=== PATIENT | male | born 1980 | race Caucasian/White ===

== ENCOUNTER → 2024-07-31 14:57 | Outpatient (CLI) | payer OTHER, SELFPAY ==
--- NOTE | 2024-07-31 15:01 | DI.ECHO.S_ITS ---
[facility] : : [id number] : [place] : : [id number] : : Phone: [phone] Echocardiogram Report + + :Name: NOLA GREWAL Study Date: 07/31/2024 Height: 72 in : :Hospital ReadingLocation: Weight: 287 lb : : Gender: Male BSA: 2.5 m2 : :: 1980 Age: 43 yrs BP: 147/97 mmHg: :Reason For Study: CHEST PAIN : :Ordering Physician: IAIN, : :ALIYAH Performed By: Colton Reyna : :Referring: ALIYAH TIMMONS : + + Interpretation Summary The left ventricle is normal in size. The left ventricular ejection fraction is normal. The ejection fraction is estimated to be 60-65%. The right ventricle is at the upper limits of normal in size. The right ventricular systolic function is normal. No significant valvular pathology seen. The inferior vena cava was not visualized. Procedure: A two-dimensional transthoracic echocardiogram with color flow and Doppler was performed. The study quality was technically good. There is no prior echocardiogram noted for this patient. The patient was in normal sinus rhythm during the exam. Left Ventricle: The left ventricle is normal in size. There is normal left ventricular wall thickness. There is no thrombus. The ejection fraction is estimated to be 60-65%. The left ventricular ejection fraction is normal. There are no focal wall motion abnormalities. Diastolic parameters suggest probable normal left ventricular diastolic function and normal filling pressures. Right Ventricle: The right ventricle is at the upper limits of normal in size. The right ventricular systolic function is normal. Atria: The left atrial size is normal. Right atrial size is normal. There is no Doppler evidence for an interatrial shunt. Mitral Valve: The mitral valve leaflets appear normal. There is no evidence of stenosis, fluttering, or prolapse. There is no mitral regurgitation noted. Aortic Valve: The aortic valve is trileaflet. The aortic valve opens well. There is no aortic valve stenosis. No aortic regurgitation is present. Tricuspid Valve: The tricuspid valve leaflets are thin and pliable. No tricuspid regurgitation. Pulmonary artery pressures cannot be estimated because of the lack of a measurable TR jet velocity. Pulmonic Valve: The pulmonic valve leaflets are thin and pliable; valve motion is normal. There is trace pulmonic regurgitation. Great Vessels: The aortic root is normal size. The dimensions of the ascending aorta are normal. The pulmonary artery is normal size. The inferior vena cava was not visualized. Pericardium/ Pleura There is no pericardial effusion. MMode/2D Measurements & Calculations LVIDd: 5.8 cm LVOT diam: 2.1 cm LVIDs: 4.0 cm Ao root diam: 3.3 cm FS: 31.1 % asc Aorta Diam: 3.3 cm EPSS: 0.87 cm Ao Arch Diam (Prox Trans): 2.4 cm IVSd: 0.85 cm LVPWd: 1.0 cm LV ferris. diameter/BSA (cm/m^2): 2.3 LV sys. diameter/BSA (cm/m^2): 1.6 LA A2 area: 15.9 cm2 RA long axis: 4.2 cm LA A4 area: 14.2 cm2 RA area: 13.6 cm2 LA length (vol): 4.7 cm RA vol: 37.8 ml LA vol: 40.6 ml RA : 15.2 ml/m2 LA vol index: 16.3 ml/m2 RVD1 (basal): 4.1 cm RVD2 (mid): 3.1 cm TAPSE: 2.3 cm Doppler Measurements & Calculations Ao V2 max: 118.4 cm/sec LVOT Max Dwight: 96.0 cm/sec Ao V2 mean: 91.3 cm/sec LV V1 max P.7 mmHg Ao max P.6 mmHg LV V1 VTI: 16.6 cm Ao mean P.5 mmHg BHANU(I,D): 2.7 cm2 Ao V2 VTI: 21.9 cm BHANU(V,D): 2.9 cm2 sev ratio: 0.76 BHANU indexed to BSA (cm^2/m^2): 1.1 MV E max dwight: 53.0 cm/sec TR max dwight: 230.2 cm/sec MV A max dwight: 46.2 cm/sec TR max P.2 mmHg MV E/A: 1.1 PA V2 max: 83.5 cm/sec Med Peak E' Dwight: 8.9 cm/sec PA V2 mean: 62.8 cm/sec E/E' med: 5.9 PA mean P.7 mmHg Lat Peak E' Dwight: 9.7 cm/sec PA pr(Accel): 25.9 mmHg E/E' lat: 5.5 E/e' average: 5.7 MV dec time: 0.18 sec SV(LVOT): 60.2 ml Reading Physician:03:24 PM
== END ==
PROVIDERS: Referring Provider Orthopaedic Surgery; Visit Provider Physician Assistant
DX: R07.9 Chest pain, unspecified (principal)
CPT/HCPCS: 93306